=== PATIENT | male | born 1955 ===

== ENCOUNTER 2019-01-12 06:36 | Day surgery (SDC) | payer MEDICARE, OTHER ==
[2019-01-09 12:05] LABS: HEMATOCRIT 37.4 % (42.0-54.0); HEMOGLOBIN 12.3 g/dL (13.5-17.5); MCH 24.1 pg (26.0-34.0); MCHC 32.9 g/dL (31.0-37.0); MCV 73.3 fL (80.0-100.0); MEAN PLATELET VOLUME 10.1 fL (7.4-10.4); RBC 5.1 10x6/uL (4.20-6.10); RDW 15.3 % (11.5-14.5); WBC 5.9 10x3/uL (4.8-10.8)
[2019-01-09 12:08] LABS: CALC OSMOLALITY 283 mosm/kg (275-300); CHLORIDE - SERUM 106 mmol/L (98-107); GLUCOSE 104 mg/dL (74-106); POTASSIUM - SERUM 3.7 mmol/L (3.5-5.1); SODIUM 142 mmol/L (136-145); UREA NITROGEN 15 mg/dL (7-18); eGFR NON AFRICAN AMERICAN 80 mL/min (90-120)
[~2019-01-12] VITALS: Ht 190.5 cm; Wt 114.3 kg
[2019-01-12 06:28] VITALS: BP 155/92; Ht 190.5 cm; Wt 114.3 kg
[~2019-01-12 06:36] MED LIST: BAYER CHEWABLE81 MG PO; BENICAR40 MG PO; BUMEX2 MG PO; FLUTICASONE PRO16 GM NASAL; K-DUR20 MEQ PO; NEURONTIN 400400 MG PO; NEXIUM20 MG PO; NORVASC2.5 MG PO; ZYLOPRIM300 MG PO
[2019-01-12] MEDS ORDERED: HYDROCODON-ACE1 EA10 PO (08:01)
--- NOTE | 2019-01-12 08:48 | NUR ---
0848 FL DIET SERVED, ICE CAP PROVIDED FOR ELBOW.
--- NOTE | 2019-01-12 09:38 | NUR ---
0894 DC INSTS REVIEWED RX GIVEN SLING PROVIDED EXTRA ICE PACKS PROVIDED VOICED UNDERSTANDING RELEASED IN WC WITH ESCORT.
--- NOTE | 2019-01-15 12:35 | OP ---
PATIENT NAME: EULA HSU MEDICAL RECORD: [id number] :57 LOCATION:[facility] ADMISSION DATE: SURGEON: KYMBERLY BEAR MD DATE OF OPERATION: 01/12/2019 PREOPERATIVE DIAGNOSIS: Cubital tunnel of the right upper extremity. POSTOPERATIVE DIAGNOSIS: Cubital tunnel of the right upper extremity. PROCEDURE: Cubital tunnel release of right upper extremity. SURGEON: Kymberly Bear MD [employer] MACHINE OPERATOR: Kael Marrero INTRAOPERATIVE COMPLICATIONS: None. SUMMARY OF PATHOLOGIC FINDINGS: The patient was found to have a very tight cubital canal consistent with the preoperative diagnosis, hand atrophy as well as numbness of the lateral 2 fingers, as well as numbness of the ring and small finger in keeping with EMG and NCV studies done preoperatively. OPERATIVE SUMMARY IN DETAIL: After obtaining the appropriate preoperative orthopedic surgery consent as well as anesthetic consultation, evaluation, and clearance the patient was brought to the operating room and placed on the operating table in supine position. After adequate general laryngeal mask airway was administered, right upper extremity was prepped and draped in a routine sterile fashion. At this point, appropriate timeout was taken, all patient identifiers were utilized and everyone was in agreement. Arm was elevated and exsanguinated, tourniquet was inflated to 250 mmHg. An incision was made between the medial epicondyle as well as the tip of the trochlea. This incision was taken down, the ulnar nerve was identified. Serial and sequential adhesions were removed circumferentially of the ulnar nerve and then the ulnar nerve was freed up approximately 5 cm distal to the incision and 5 cm proximal to the incision. Ulnar nerve transposition was not done. Wound was copiously irrigated and closed by Kael Marrero with 2-0 Vicryl followed by 4-0 Prolene in running fashion. Sterile dressings were applied. Tourniquet was deflated. The patient was awakened, taken to recovery in stable condition. All final needle and sponge counts were correct. TRANSINT:[id number] Voice Confirmation ID: [id number] DOCUMENT ID: [id number] KYMBERLY BEAR MD at 1235 CC: [id number] DICTATION DATE: 01/15/19 1046 [employer]AUR[employer] ASSOCIATE: 01/15/19 1100 [facility] 01/12/19 [place] [address]
== END 2019-01-12 09:38 | disposition home or self-care (01) ==
LOC: D.OPS 06:36 → D.PAN 07:30 → D.OPS 09:38
PROVIDERS: Anesthesiology; ATTEND Orthopaedic Surgery
DX: G56.21 Lesion of ulnar nerve, right upper limb (principal)